=== PATIENT | female | born 1975 | race Two or more races ===

== ENCOUNTER 2018-09-07 20:35 | Observation (INO) | payer OTHER ==
--- NOTE | 2018-09-07 22:57 | ER Document Report ---
ED Medical Screen (RME) - General Chief Complaint: Chest Pain > 30 Stated Complaint: FLANK PAIN Time Seen by Provider: 09/07/18 22:42 TRAVEL OUTSIDE OF THE [place] IN LAST 30 DAYS: No - HPI Notes: 09/07/18 22:56 Patient is a 43-year-old female with a history of diabetes who presents to the emergency department with the acute onset of mid sternal chest pain that radiates into the left arm. Patient states that this happened around 7:30 PM tonight. Patient states that as the discomfort radiated to the left arm she did develop left hand numbness. Patient states that her symptoms have all gone. Patient denies abdominal pain or nausea or vomiting. Patient does states she takes Advil 2-3 times per week for recurring headaches. Patient denies acid reflux or diagnosis of. Patient denies cardiac history or family history. Patient does report having diabetes. Physical Exam - Vital signs Vitals: Temp Pulse Resp BP Pulse Ox 98.2 F 91 20 124/86 H 98 09/07/18 21:34 09/07/18 21:34 09/07/18 21:34 09/07/18 21:34 09/07/18 21:34 Interpretation: Normal - Cardiovascular Rhythm: Regular Heart sounds: Normal auscultation, S1 appreciated, S2 appreciated Course - Re-evaluation Re-evalutation: 09/07/18 22:57 I have greeted and performed a rapid initial assessment of this patient. A comprehensive ED assessment and evaluation of the patient, analysis of test results and completion of the medical decision making process will be conducted by additional ED providers. - Vital Signs Vital signs: Temp Pulse Resp BP Pulse Ox 98.2 F 91 20 120/75 97 09/07/18 21:34 09/07/18 21:34 09/08/18 05:16 09/08/18 05:16 09/08/18 05:16 - Laboratory Result Diagrams: 09/08/18 00:33 09/08/18 00:33 Laboratory results interpreted by me: 09/08/18 09/08/18 00:33 00:33 WBC 12.3 H Glucose 139 H Doctor's Discharge - Discharge Clinical Impression: Chest pain Qualifiers: Chest pain type: unspecified Qualified Code(s): R07.9 - Chest pain, unspecified Arm pain Qualifiers: Laterality: left Qualified Code(s): M79.602 - Pain in left arm Condition: Stable Disposition: ADMITTED OBSERVATION
--- NOTE | 2018-09-07 23:36 | RADIOLOGY REPORT (SQ) ---
EXAM DESCRIPTION: XR CHEST 2 VIEWS COMPLETED DATE/TME: 09/07/2018 22:54 CLINICAL HISTORY: 43 years, Female, chest pain EXAM DESCRIPTION: CLINICAL HISTORY: chest pain COMPARISON: EXAM DESCRIPTION: CLINICAL HISTORY: chest pain COMPARISON: None. FINDINGS: Two views of the chest are submitted. Cardiac silhouette appears normal. No focal parenchymal or pleural disease. No acute bony abnormality. There is no significant pulmonary vascular engorgement. IMPRESSION: No evidence of acute cardiopulmonary disease. FINDINGS: Two views of the chest are submitted. Cardiac silhouette appears normal. No focal parenchymal or pleural disease. No acute bony abnormality. There is no significant pulmonary vascular engorgement.
--- NOTE | 2018-09-08 00:51 | ER Document Report ---
ED General - General Chief Complaint: Chest Pain > 30 Stated Complaint: FLANK PAIN Time Seen by Provider: 09/07/18 22:42 Notes: Patient is a pleasant 43-year-old female who presents with complaint of onset of pain that started underlying the left breast and then went into her left shoulder and down her left arm. She denies any shortness of breath with it. No nausea. She does have history of diabetes and takes metformin. No family history of cardiac disease. She is down here visiting from [place]. She has no other complaints at this time. She still has a little bit of pain into the left shoulder. No pain in the chest at this time. TRAVEL OUTSIDE OF THE [place] IN LAST 30 DAYS: No Past Medical History - Social History Smoking Status: Never Smoker Frequency of alcohol use: None Drug Abuse: None Family History: Reviewed & Not Pertinent Review of Systems - Review of Systems Notes: My Normal Review Basic REVIEW OF SYSTEMS: CONSTITUTIONAL : Denies fever, chills, or sweats. Denies recent illness. EENT: Denies eye, ear, throat, or mouth pain or symptoms. Denies nasal or sinus congestion. CARDIOVASCULAR: Chest pain RESPIRATORY: Denies cough, cold, or chest congestion. Denies shortness of breath, difficulty breathing, or wheezing. GASTROINTESTINAL: Denies abdominal pain. Denies nausea, vomiting, or diarrhea. Denies constipation. Last BM: MUSCULOSKELETAL: Denies neck or back pain or joint pain or swelling. SKIN: Denies rash or skin lesions. HEMATOLOGIC : Denies easy bruising or bleeding. NEUROLOGICAL: Denies altered mental status or loss of consciousness. Denies headache. Denies weakness or paralysis or loss of use of either side. Denies problems with gait or speech. Denies sensory or motor loss. ALL OTHER SYSTEMS REVIEWED AND NEGATIVE. Physical Exam - Vital signs Vitals: Temp Pulse Resp BP Pulse Ox 98.2 F 91 20 124/86 H 98 09/07/18 21:34 09/07/18 21:34 09/07/18 21:34 09/07/18 21:34 09/07/18 21:34 - Notes Notes: General Appearance: Well nourished, alert, cooperative, no acute distress, no obvious discomfort. Well-appearing. Vitals: reviewed, See vital signs table. Eyes: PERRL, EOMI, Conjuctiva clear Mouth: No decreasd moisture Lungs: No wheezing, No rales, No rhonci, No accessory muscle use, good air exchange bilaterally. Heart: Normal rate, Regular rythm, No murmur, no rub Abdomen: Normal BS, soft, No rigidity, No abdominal tenderness, No guarding, no rebound, no abdominal masses, no organomegaly Extremities: strength 5/5 in all extremities, good pulses in all extremities, no edema. Skin: warm, dry, appropriate color, no rash Neuro: speech clear, oriented x 3, normal affect, responds appropriately to questions. Course - Re-evaluation Re-evalutation: 09/08/18 01:04 I did concerns with the patient's pain. She still has some "pulling sensation" in the left arm. 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 Her initial EKG was okay. Her cardiac enzymes are still pending. After as discussed as the patient she told me that she wants to leave. She says that she is from out of town and lives in [place]. She says that she has had back to [place] tomorrow because her son has radiation minesh tment upcoming. I informed her that I understand this however I would recommend that she stay based on her risk factors of diabetes and the character of her pain so that we could do repeat cardiac enzymes and stress testing. Patient says she is understanding of this but cannot stay and will not stay at this time. I told her that I would at least recommend to please do a delta troponin to make sure it is not uptrending of her initial one is negative. Patient still says that she cannot stay and says that she wants to leave. I informed her that I would at least like her phone number so please call her with her test results. Patient did give me a phone number in and does appreciate the fact that I will call her with her test results. I informed her that we want what is best for her and they were not mad at her. I informed her that she is more than welcome to return to ER anytime so that we can reevaluate her and treat her. She is aware that her heart attack is life-threatening and that I cannot rule out heart attack at this time. She still wants to leave at this time. I will discharge her she requests with the understanding that she is taking a large risk by leaving. Patient is understanding of this. She is awake alert and appropriate. She shows no signs of confusion or altered mental status. I do not feel I can hold the patient against her will. Dictation of this chart was performed using voice recognition software; therefore, there may be some unintended grammatical errors. 09/08/18 01:59 Before patient received her paperwork her troponin did come back and it is significantly elevated. I went back immediately and spoke with the patient informed her that she really should not leave. I informed her that we now have proof that she is having a heart attack and that she needs to stay. Patient now agrees to stay. I will give her nitro to see if what pain is left in her arm will resolve. We will give a dose Lovenox. Patient denies any recent bleeding. No blood in her stool. No vomiting blood. 09/08/18 02:58 Patient's blood pressure did briefly drop after the second nitro. She responded immediately with IV fluids. Chest pain is resolved. I will call and speak with the hospitalist about potential admission. 09/08/18 03:28 I did get in touch with Dr. Flores, hospitalist. He said he would call me back later as he is busy with a sick patient at this time. 09/08/18 04:34 I did speak with the pile driving setter on-call, Dr. Mckee. Since I was waiting to hear back from the hospitalist I wanted to run the case by him as well. The patient does meet our criteria to keep your for cardiac catheterization being that she is not having ongoing pain, her kidney function is normal, she has no evidence of congestive heart failure, and no EKG changes. Dr. Mckee said to explained to the patient that if her cath is positive that she will have to be transferred for a second catheter intervention. He said as long as she is standing of that then we can keep her here. I did explain this to the patient. Patient says that she is understanding that if her cath is positive here that she will be have to be transferred. She said she still prefers to stay here as opposed to being transferred and she wants to have the initial cardiac cath performed here. 09/08/18 05:[address] Flores, hospitalist, who agrees to admit the patient. I did spoke with Dr. Mckee again. Informed him of patient's wish to stay. He asked me to put the patient on half-normal saline and to arrange for an Accu- Chek at 6 AM. Said to keep the patient n.p.o. - Vital Signs Vital signs: Temp Pulse Resp BP Pulse Ox 98.2 F 91 20 120/75 97 09/07/18 21:34 09/07/18 21:34 09/08/18 05:16 09/08/18 05:16 09/08/18 05:16 - Laboratory Result Diagrams: 09/08/18 00:33 09/08/18 00:33 Laboratory results interpreted by me: 09/08/18 09/08/18 00:33 00:33 WBC 12.3 H Glucose 139 H - EKG Interpretation by Me Additional EKG results interpreted by me: 09/08/18 00:51 EKG is reviewed and interpreted by me. EKG shows sinus rhythm with rate of [address] segment elevation or depression. No ischemic T wave inversions. NJ interval, QRS duration, QT intervals are within normal range. No old EKG available for comparison. 09/08/18 02:57 EKG #2 is reviewed and interpreted by me. EKG shows sinus rhythm with rate of [address] segment elevation or depression. No ischemic T wave inversions. NJ interval, QRS duration, Qtc intervals are within normal range. Discharge - Discharge Clinical Impression: Chest pain Qualifiers: Chest pain type: unspecified Qualified Code(s): R07.9 - Chest pain, unspecified Arm pain Qualifiers: Laterality: left Qualified Code(s): M79.602 - Pain in left arm Condition: Stable Disposition: ADMITTED OBSERVATION Admitting Provider: Mark (Hospitalist) Unit Admitted: [facility] Additional Instructions: As discussed with you, I cannot fully rule out the possibility of a potential heart attack without waiting on the results of your blood work and potentially repeating your heart enzymes to make sure they are not elevating. Even if these were negative I would still recommend that you to stay and have a stress test performed. I understand your situation and the need to get back to [place]. I will call you with your initial blood work results as soon as they come back. There is no way to determine whether or not you will have a bad outcome within the next 24 hours and this is why we prefer you to stay. We respect your decision to leave and understand that you do have prior priorities. Even though you are leaving we are not upset or mad. We just want what is best for you and therefore we encourage you to come back anytime if you have any recurrence of your symptoms. Please follow-up with your physician as soon as you get back up to [place] for reevaluation and discuss possible outpatient cardiac stress testing. If you do decide to drive back to [place] tomorrow you should have a very low threshold to stop at the hospital emergency department immediately if you have recurrent chest pain, any difficulty breathing, or feel unwell in any way. Please take 81 mg of aspirin every day. Take it with food so it does not irritate your stomach.
[2018-09-08 01:02] LABS: ABSOLUTE BASOPHILS # (AUTO) 0.1 10^3/uL (0.0-0.2); ABSOLUTE EOSINOPHILS # (AUTO) 0.1 10^3/uL (0.0-0.6); ABSOLUTE LYMPHOCYTES (AUTO) 3.7 10^3/uL (0.5-4.7); ABSOLUTE MONOCYTES (AUTO) 0.9 10^3/uL (0.1-1.4); ABSOLUTE NEUT (AUTO) 7.6 10^3/uL (1.7-8.2); BASOPHILS % (AUTO) 0.7 % (0-2); EOSINOPHILS % (AUTO) 1.1 % (0-6); HEMATOCRIT 38.3 % (36.0-47.0); HEMOGLOBIN 12.8 g/dL (12.0-15.5); LYMPHOCYTES % (AUTO) 29.8 % (13-45); MEAN CORPUSCULAR HEMOGLOBIN 28.7 pg (27.0-33.4); MEAN CORPUSCULAR HGB CONC 33.4 g/dL (32.0-36.0); MEAN CORPUSCULAR VOLUME 86 fl (80-97); PLATELET COUNT 350 10^3/uL (150-450); RED BLOOD COUNT 4.47 10^6/uL (3.72-5.28); RED CELL DISTRIBUTION WIDTH 13.2 % (11.5-14.0); SEGMENTED NEUTROPHILS % (AUTO) 61.4 % (42-78); TOTAL CELLS COUNTED % (AUTO) 100 %; WHITE BLOOD COUNT 12.3 10^3/uL (4.0-10.5)
[2018-09-08 01:08] LABS: ALANINE AMINOTRANSFERASE 21 U/L (9-52); ALBUMIN 4.3 g/dL (3.5-5.0); ALKALINE PHOSPHATASE 89 U/L (38-126); ANION GAP 13 (5-19); ASPARTATE AMINO TRANSFERASE 18 U/L (14-36); BILIRUBIN,DIRECT 0.2 mg/dL (0.0-0.4); BILIRUBIN,TOTAL 0.5 mg/dL (0.2-1.3); BLOOD UREA NITROGEN 10 mg/dL (7-20); CALCIUM 9.6 mg/dL (8.4-10.2); CARBON DIOXIDE 27 mmol/L (22-30); CHLORIDE 101 mmol/L (98-107); GLUCOSE 139 mg/dL (75-110); POTASSIUM 4.5 mmol/L (3.6-5.0); SODIUM 140.5 mmol/L (137-145)
[2018-09-08] MEDS ORDERED: ENOXAPARIN SODIUM INJ 80 MG/0.8 ML DISP.SYRIN SUBCUT SCH ×2 (02:00→10:00)
[2018-09-08] MEDS ORDERED: ENOXAPARIN SODIUM INJ 80 MG/0.8 ML DISP.SYRIN SUBCUT ONE (02:10)
[2018-09-08] MEDS: NITROGLYCERIN 0.4 MG/TAB 25 TAB/BOTTLE SL PRN ×2 (02:12→02:33)
[2018-09-08] MEDS ORDERED: NORMAL SALINE 1000 ML 1,000 ML IV ONE (02:55)
[2018-09-08] MEDS ORDERED: NITROGLYCERIN 2% OINTMENT 1 GM PACKET TP ONE (03:28)
[2018-09-08] MEDS ORDERED: SIMVASTATIN 40 MG TABLET PO ONE (04:37)
[2018-09-08] MEDS ORDERED: 1/2 NORMAL SALINE 1,000 ML IV ONE (04:59)
[2018-09-08] MEDS ORDERED: ONDANSETRON HCL INJ/PF 4 MG/2 ML SDV IV PRN (06:30)
[2018-09-08] MEDS ORDERED: DEXTROSE 40% GEL 15 GM TUBE PO PRN ×2 (06:30)
[2018-09-08] MEDS ORDERED: DEXTROSE 50%-WATER 25 GM/50 ML DISP.SYRIN IV PRN ×2 (06:30)
[2018-09-08] MEDS ORDERED: GLUCAGON,HUMAN RECOMB 1 MG INJ SUBCUT PRN (06:30)
[2018-09-08] MEDS ORDERED: MAG HYDROX/AL HYDROX/SIMETH SUSP 30 ML UDCUP PO PRN (06:30)
[2018-09-08] MEDS ORDERED: MAGNESIUM HYDROXIDE SUSP 30 ML UDCUP PO PRN (06:30)
--- NOTE | 2018-09-08 06:48 | PDOC H&P ---
History of Present Illness Admission Date/PCP: 09/08/18 05:34 No PCP Patient complains of: Chest pain History of Present Illness: ADRIANO DUKES is a 43 year old female who presented to the emergency room with acute onset chest pain. She admits that at approximately 7 PM on the night prior to her admission she developed sudden onset of pain in her left chest just under her breast lateral to her sternum. Pain was a well localized constant pressure and was of very mild intensity. A short while later the patient developed some stretching sensation in her left shoulder and down the posterior aspect of her left arm and eventually she developed some numbness of her left palm. With these symptoms she became a little more alarmed and presented to the emergency room at about 9 PM. She denies prior similar symptoms and has not identified any aggravating or ameliorating factors for her chest pain. In the emergency room her pain was relieved after treatment with the chest pain resolvi ng first in the left shoulder arm and hand symptoms resolving more than an hour or 2 later. Her initial cardiac enzymes were positive for a troponin of 0.7 and she was subsequently admitted to the hospital for further evaluation and treatment with her EKG showing no acute myocardial injury or ischemia and Dr. Mckee being consulted. Past Medical History Cardiac Medical History: Denies: Coronary Artery Disease, Hypertension Pulmonary Medical History: Denies: Asthma, Chronic Obstructive Pulmonary Disease (COPD) EENT Medical History: Denies: Cataracts, Eyes - Prescription lenses, Ears - Hearing aids Neurological Medical History: Denies: Hemorrhagic CVA, Seizures Endocrine Medical History: Reports: Diabetes Mellitus Type 2 Denies: Diabetes Mellitus Type 1, Hyperthyroidism, Hypothyroidism, Obesity Renal/ Medical History: Denies: Chronic Kidney Disease, Nephrolithiasis Malignancy Medical History: Reports: None GI Medical History: Denies: Cirrhosis, Hiatal Hernia Musculoskeltal Medical History: Denies: Arthritis, Fibromyalgia Skin Medical History: Denies: Eczema, Psoriasis Psychiatric Medical History: Denies: Alcohol Dependency, Substance Abuse, Tobacco Dependency Traumatic Medical History: Reports: None Hematology: Denies: Anemia, Bleeding Tendencies Infectious Medical History: Reports: None Past Surgical History Past Surgical History: Reports: Herniorrhaphy Social History Information Source: Patient Smoking Status: Never Smoker Frequency of Alcohol Use: None Hx Recreational Drug Use: No Drugs: None Hx Prescription Drug Abuse: No - Advance Directive Resuscitation Status: Full Code Surrogate healthcare decision maker:: Family History Family History: denies: CAD, DM, Hypertension, Malignancy Parental Family History Reviewed: Yes Children Family History Reviewed: No Sibling(s) Family History Reviewed.: Yes Review of Systems Constitutional: ABSENT: chills, fever(s) Eyes: ABSENT: visual disturbances, other - Ocular pain Ears: ABSENT: hearing changes, other Nose, Mouth, and Throat: ABSENT: mouth pain - Ear pain, sore throat Cardiovascular: PRESENT: as per HPI, chest pain. ABSENT: dyspnea on exertion, edema, orthropnea, palpitations Respiratory: ABSENT: cough, dyspnea Gastrointestinal: ABSENT: abdominal pain, constipation, diarrhea, nausea, vomiting Genitourinary: ABSENT: dysuria, hematuria Musculoskeletal: PRESENT: as per HPI, other - Muscle stretching sensation associated with her chest pain. ABSENT: back pain, joint swelling, muscle weakn ess Integumentary: ABSENT: pruritus, rash Neurological: PRESENT: as per HPI, numbness - Left hand associated with the chest pain. ABSENT: confusion, convulsions, focal weakness, memory loss Psychiatric: ABSENT: anxiety, depression Endocrine: ABSENT: cold intolerance, heat intolerance Hematologic/Lymphatic: ABSENT: easy bleeding, easy bruising Physical Exam Vital Signs: Temp Pulse Resp BP Pulse Ox 98.2 F 91 20 120/75 97 09/07/18 21:34 09/07/18 21:34 09/08/18 05:16 09/08/18 05:16 09/08/18 05:16 Intake & Output 09/06/18 09/07/18 09/08/18 23:59 23:59 23:59 Weight 62.596 kg General appearance: PRESENT: no acute distress, cooperative Head exam: PRESENT: atraumatic, normocephalic Eye exam: ABSENT: conjunctival injection, scleral icterus Ear exam: PRESENT: normal external ear exam. ABSENT: bleeding, drainage Mouth exam: PRESENT: dry mucosa, neck supple Neck exam: ABSENT: JVD, thyromegaly, tracheal deviation Respiratory exam: PRESENT: clear to auscultation cierra, symmetrical, unlabored Cardiovascular exam: PRESENT: RRR. ABSENT: clicks, gallop, rubs Pulses: PRESENT: normal radial pulses, normal dorsalis pedis pul Vascular exam: PRESENT: normal capillary refill. ABSENT: pallor GI/Abdominal exam: PRESENT: normal bowel sounds, soft Rectal exam: PRESENT: deferred Extremities exam: ABSENT: joint swelling, pedal edema Musculoskeletal exam: PRESENT: full ROM, normal inspection Neurological exam: PRESENT: alert, oriented to person, oriented to place, oriented to time, oriented to situation, CN II-XII grossly intact. ABSENT: motor sensory deficit Psychiatric exam: PRESENT: appropriate affect, normal mood Skin exam: PRESENT: dry, intact, warm. ABSENT: jaundice, rash, urticaria Results Laboratory Results: 09/08/18 00:33 09/08/18 00:33 09/08/18 09/08/18 00:33 00:33 WBC 12.3 H RBC 4.47 Hgb 12.8 Hct 38.3 MCV 86 MCH 28.7 MCHC 33.4 RDW 13.2 Plt Count 350 Seg Neutrophils % 61.4 Lymphocytes % 29.8 Monocytes % 7.0 Eosinophils % 1.1 Basophils % 0.7 Absolute Neutrophils 7.6 Absolute Lymphocytes 3.7 Absolute Monocytes 0.9 Absolute Eosinophils 0.1 Absolute Basophils 0.1 Sodium 140.5 Potassium 4.5 Chloride 101 Carbon Dioxide 27 Anion Gap 13 BUN 10 Creatinine 0.57 Est GFR ( Amer) > 60 Est GFR (Non-Af Amer) > 60 Glucose 139 H Calcium 9.6 Total Bilirubin 0.5 AST 18 ALT 21 Alkaline Phosphatase 89 Total Protein 8.0 Albumin 4.3 09/08/18 00:33 Troponin I 0.707 Impressions: Chest X-Ray 09/07/18 22:54 IMPRESSION: No evidence of acute cardiopulmonary disease. FINDINGS: Two views of the chest are submitted. Cardiac silhouette appears normal. No focal parenchymal or pleural disease. No acute bony abnormality. There is no significant pulmonary vascular engorgement. IMPRESSION: No evidence of acute cardiopulmonary disease. Assessment and Plan - Diagnosis (1) Chest pain Qualifiers: Chest pain type: unspecified Qualified Code(s): R07.9 - Chest pain, unspecified Is this a current diagnosis for this admission?: Yes Plan: Patient will be admitted to observation status and consultation with Dr. Mckee will be undertaken. Serial cardiac enzymes and EKGs will be obtained and the patient may receive a cardiac catheterization if necessary. Patient will have nitroglycerin paste 1 inch every 4 hours for control of her chest pain and any breakthrough chest pain will be treated with morphine sulfate 2 to 4 mg IV every 2 hours on a as needed basis with a sliding scale. - Time Time Spent with patient: 25-34 minutes Medications reviewed and adjusted accordingly: Yes Anticipated discharge: Home - Inpatient Certification Based on my medical assessment, after consideration of the patient's comorbidities, presenting symptoms, or acuity I expect that the services needed warrant INPATIENT care.: No I certify that my determination is in accordance with my understanding of Medicare's requirements for reasonable and necessary INPATIENT services [42 CFR 412.3e].: No Medical Necessity: Need Close Monitoring Due to Risk of Patient Decompensation, Need For Continuous Telemetry Monitoring, Need for Pain Control, Risk of Complication if Not Cared For in Hospital
[2018-09-08] MEDS ORDERED: INSULIN REG, HUMAN 100 UNIT/ML 3 ML VIAL (PYX) SUBCUT PRN (06:50)
[2018-09-08] MEDS ORDERED: MORPHINE SULFATE 10 MG/ML INJ IV PRN ×4 (06:51→07:29)
[2018-09-08 07:11] LABS: CHOLESTEROL 170.78 mg/dL (0-200); TRIGLYCERIDES 184 mg/dL (<150)
[2018-09-08 07:22] LABS: DIRECT LDL 99 mg/dL (<100)
[2018-09-08 07:23] LABS: VLDL CHOLESTEROL 36.8 mg/dL (10-31)
[2018-09-08 07:24] LABS: CREATINE KINASE MB 5.45 ng/mL (<4.55); TROPONIN I 1.19 ng/mL
[2018-09-08] MEDS ORDERED: NITROGLYCERIN 2% OINTMENT 1 GM PACKET TP SCH (08:00)
[2018-09-08 08:02] LABS: INTERNATIONAL RATION (INR) 1.01; PROTHROMBIN TIME 13.8 SEC (11.4-15.4)
[2018-09-08 08:03] LABS: PARTIAL THROMBOPLASTIN TIME 35.8 SEC (23.5-35.8)
[2018-09-08] MEDS ORDERED: ASPIRIN 81 MG TABLET, CHEWABLE ONE (09:00)
[2018-09-08] MEDS ORDERED: ASPIRIN 325 MG TABLET PO ONE (09:00)
[2018-09-08] MEDS ORDERED: ASPIRIN 81 MG TABLET, CHEWABLE PO ONE (09:15)
[2018-09-08 09:28] VITALS: BP 137/81
[2018-09-08] MEDS ORDERED: FAMOTIDINE 20 MG TABLET PO SCH (10:00)
[2018-09-08] MEDS ORDERED: DOCUSATE SODIUM 100 MG CAPSULE PO SCH (10:00)
--- NOTE | 2018-09-08 11:29 | PDOC TRANSFER SUMMARY ---
General Admission Date/PCP: 09/08/18 05:34 Admission Date: 09/08/18 Transfer Date: 09/08/18 Accepting Facility: [facility] Resuscitation Status: Full Code - Transfer Diagnosis (1) Non-ST elevation (NSTEMI) myocardial infarction Is this a current diagnosis for this admission?: Yes (2) Type 2 diabetes mellitus Is this a current diagnosis for this admission?: Yes - Transfer Medications Home Medications: Metformin HCl [Glucophage 500 mg Tablet] 1,000 mg PO QHS 09/08/18 Transfer Medications: Current Medications Al Hydrox/Mg Hydrox/Simethicone (Maalox Plus Susp 30 Udcup) 30 ml PO Q6HP PRN PRN Reason: HEARTBURN Stop: 10/08/18 06:29 Dextrose (Dextrose Inj 50% Syringe (25 Gm/50 Ml)) 12.5 gm IV PRN PRN; Protocol PRN Reason: FOR BG 50-69 IN ALERT PATIENT Stop: 10/08/18 06:29 Dextrose (Dextrose Inj 50% Syringe (25 Gm/50 Ml)) 25 gm IV PRN PRN; Protocol PRN Reason: See Label Comments Stop: 10/08/18 06:29 Docusate Sodium (Colace 100 Mg Capsule) 100 mg PO BID [place] Stop: 10/08/18 09:59 Enoxaparin Sodium (Lovenox Inj 80 Mg/0.8 Ml Disp.Syrin) 65 mg SUBCUT Q12 [place] Stop: 10/08/18 09:59 Famotidine (Pepcid 20 Mg Tablet) 20 mg PO Q12 [place] Stop: 10/08/18 09:59 Glucagon (Glucagen Inj 1 Mg Vial) 1 mg SUBCUT PRN PRN; Protocol PRN Reason: Evaluate for BG < 70 Stop: 10/08/18 06:29 Glucose (Glutose 40% Gel 15 Gm Tube) 15 gm PO PRN PRN; Protocol PRN Reason: For BG 50-69 in Alert Patient Stop: 10/08/18 06:29 Glucose (Glutose 40% Gel 15 Gm Tube) 30 gm PO PRN PRN; Protocol PRN Reason: FOR BG < 50 IN ALERT PATIENT Stop: 10/08/18 06:29 Sodium Chloride (Nacl 0.45% 1000 Ml Iv Soln) 1,000 mls @ 75 mls/hr IV NOW ONE Stop: 09/08/18 18:18 Last Admin: 09/08/18 05:54 Dose: 75 mls/hr Documented by: Insulin Human Regular (Humulin R (Pyxis) Insulin 100 Unit/Ml 3ml) 0 - 15 unit SUBCUT ACHSP PRN; Protocol PRN Reason: PER PROTOCOL Stop: 10/08/18 06:49 Magnesium Hydroxide (Milk Of Magnesia 30 Ml Udcup) 30 ml PO DAILYP PRN PRN Reason: FOR CONSTIPATION Stop: 10/08/18 06:29 Morphine Sulfate (Morphine 10 Mg/Ml Inj) 2 mg IV Q2HP PRN PRN Reason: FOR PAIN SCALE 1-2 Stop: 09/15/18 07:27 Morphine Sulfate (Morphine 10 Mg/Ml Inj) 3 mg IV Q2HP PRN PRN Reason: FOR PAIN SCALE 3-4 Stop: 09/15/18 07:27 Morphine Sulfate (Morphine 10 Mg/Ml Inj) 4 mg IV Q2HP PRN PRN Reason: PAIN SCALE OF 5 Stop: 09/15/18 07:28 Nitroglycerin (Nitrol 2% Ointment 1gm Packet) 1 gm TP Q6A [facility] Stop: 10/08/18 07:59 Last Admin: 09/08/18 08:06 Dose: 1 gm Documented by: Ondansetron HCl (Zofran Inj/Pf 4 Mg/2 Ml Sdv) 4 mg IV Q4HP PRN PRN Reason: FOR NAUSEA/VOMITING Stop: 10/08/18 06:29 Sodium Chloride (Saline Flush 2.5 Ml Monoject Prefil Syrin) 2.5 ml IV Q8 [facility] Stop: 10/08/18 13:59 - Allergies Allergies/Adverse Reactions: No Known Allergies Allergy (Unverified 09/08/18 08:02) Hospital Course Hospital Course: ADRIANO DUKES is a 43 year old female who presented to the emergency room with acute onset chest pain. She admits that at approximately 7 PM on the night prior to her admission she developed sudden onset of pain in her left chest just under her breast lateral to her sternum. Pain was a well localized constant pressure and was of very mild intensity. A short while later the patient developed some stretching sensation in her left shoulder and down the posterior aspect of her left arm and eventually she developed some numbness of her left palm. With these symptoms she became a little more alarmed and presented to the emergency room at about 9 PM. She denies prior similar symptoms and has not identified any aggravating or ameliorating factors for her chest pain. In the emergency room her pain was relieved after treatment with the chest pain resolving first in the left shoulder arm and hand symptoms resolving more than an hour or 2 later. Her initial cardiac enzymes were positive for a troponin of 0.7 and she was subsequently admitted to the hospital for further evaluation and treatment with her EKG showing no acute myocardial injury or ischemia and Dr. Mckee being consulted. Her latest troponin is 1.190 and patient still has some chest discomfort. Dr. Mckee states that cardiac cath is not going to be done here so he advised just to transfer the patient to another tertiary facility. Patient is accepted atdant. Patient has been managed with aspirin nitroglycerin sublingual and paste, Zocor high intensity dose and therapeutic dose of Lovenox. Physical Exam Vital Signs: Temp Pulse Resp BP Pulse Ox 98.2 F 91 20 120/75 97 09/07/18 21:34 09/07/18 21:34 09/08/18 05:16 09/08/18 05:16 09/08/18 05:16 Intake & Output 09/07/18 09/08/18 09/09/18 06:59 06:59 06:59 Weight 62.596 kg General appearance: PRESENT: no acute distress, well-developed, well-nourished Head exam: PRESENT: atraumatic, normocephalic Eye exam: PRESENT: conjunctiva pink, EOMI, PERRLA. ABSENT: scleral icterus Ear exam: PRESENT: normal external ear exam Mouth exam: PRESENT: moist, tongue midline Neck exam: ABSENT: carotid bruit, JVD, lymphadenopathy, thyromegaly Respiratory exam: PRESENT: clear to auscultation cierra. ABSENT: rales, rhonchi, wheezes Cardiovascular exam: PRESENT: RRR. ABSENT: diastolic murmur, rubs, systolic murmur Pulses: PRESENT: normal dorsalis pedis pul Vascular exam: PRESENT: normal capillary refill GI/Abdominal exam: PRESENT: normal bowel sounds, soft. ABSENT: distended, guarding, mass, organolmegaly, rebound, tenderness Rectal exam: PRESENT: deferred Extremities exam: PRESENT: full ROM. ABSENT: calf tenderness, clubbing, pedal edema Neurological exam: PRESENT: alert, awake, oriented to person, oriented to place, oriented to time, oriented to situation, CN II-XII grossly intact. ABSENT: motor sensory deficit Psychiatric exam: PRESENT: appropriate affect, normal mood. ABSENT: homicidal ideation, suicidal ideation Skin exam: PRESENT: dry, intact, warm. ABSENT: cyanosis, rash Results Laboratory Results: 09/08/18 00:33 09/08/18 00:33 09/08/18 09/08/18 09/08/18 00:33 00:33 06:36 WBC 12.3 H RBC 4.47 Hgb 12.8 Hct 38.3 MCV 86 MCH 28.7 MCHC 33.4 RDW 13.2 Plt Count 350 Seg Neutrophils % 61.4 Lymphocytes % 29.8 Monocytes % 7.0 Eosinophils % 1.1 Basophils % 0.7 Absolute Neutrophils 7.6 Absolute Lymphocytes 3.7 Absolute Monocytes 0.9 Absolute Eosinophils 0.1 Absolute Basophils 0.1 Sodium 140.5 Potassium 4.5 Chloride 101 Carbon Dioxide 27 Anion Gap 13 BUN 10 Creatinine 0.57 Est GFR ( Amer) > 60 Est GFR (Non-Af Amer) > 60 Glucose 139 H Calcium 9.6 Total Bilirubin 0.5 AST 18 ALT 21 Alkaline Phosphatase 89 Total Protein 8.0 Albumin 4.3 Triglycerides 184 H Cholesterol 170.78 LDL Cholesterol Direct 99 VLDL Cholesterol 36.8 H HDL Cholesterol 57 09/08/18 09/08/18 09/08/18 00:33 06:36 06:36 Creatine Kinase 81 CK-MB (CK-2) Troponin I 0.707 Cancelled 09/08/18 06:36 Creatine Kinase CK-MB (CK-2) 5.45 H Troponin I 1.190 Impressions: Chest X-Ray 09/07/18 22:54 IMPRESSION: No evidence of acute cardiopulmonary disease. FINDINGS: Two views of the chest are submitted. Cardiac silhouette appears normal. No focal parenchymal or pleural disease. No acute bony abnormality. There is no significant pulmonary vascular engorgement.
[2018-09-08 14:02] LABS: CREATINE KINASE MB 4.84 ng/mL (<4.55); TROPONIN I 0.954 ng/mL
--- NOTE | 2018-09-09 10:58 | EKG REPORT ---
SEVERITY:- NORMAL ECG - SINUS RHYTHM : Confirmed by: Luis Lee 09-Sep-2018 10:57:18
--- NOTE | 2018-09-09 10:59 | EKG REPORT ---
SEVERITY:- ABNORMAL ECG - SINUS RHYTHM PROBABLE POSTERIOR INFARCT : Confirmed by: Luis Lee 09-Sep-2018 10:57:43
== END 2018-09-08 14:15 | disposition short-term general hospital (02) ==
LOC: ER 20:35 → EH 09-08 05:34 → UNDODISOB 09-08 13:30
PROVIDERS: ADMIT Emergency Medicine; ATTEND Emergency Medicine
DX: I21.4 Non-ST elevation (NSTEMI) myocardial infarction (principal); E11.9 Type 2 diabetes mellitus without complications; R20.0 Anesthesia of skin; M79.602 Pain in left arm; Z79.84 Long term (current) use of oral hypoglycemic drugs
CPT/HCPCS: 93005 ×2; 99285; 96372; 96360; 96361; 36415; 82553; 82962; 82550; 85025; 85610; 85730; 80053; 84484; 80061; 71046; 93010 ×2; J7030; J1650; G0378